=== PATIENT | female | born 1970 | race Hispanic/Latino ===

== ENCOUNTER 2021-12-09 22:14 | Emergency (ER) | payer SELFPAY ==
[2021-12-09] MEDS ORDERED: Dexamethasone 10 MG/ML VIAL ONE (22:58)
[2021-12-10 16:05] LABS: SARS-CoV-2 PCR by NAA Not Detected (NotDetected)
== END 2021-12-09 23:09 | disposition home or self-care (01) ==
LOC: BURERS 22:14
DX: R05.9 Cough, unspecified (principal); E03.9 Hypothyroidism, unspecified; E11.9 Type 2 diabetes mellitus without complications; E78.5 Hyperlipidemia, unspecified; E78.00 Pure hypercholesterolemia, unspecified; I10 Essential (primary) hypertension; F17.210 Nicotine dependence, cigarettes, uncomplicated; Z20.822 Contact with and (suspected) exposure to COVID-19
CPT/HCPCS: 99284; J1100; U0003; U0005